=== PATIENT | female | born 2000 | race Caucasian/White ===

== ENCOUNTER 2022-06-22 19:37 | Emergency (ER) | payer MEDICAID ==
[~2022-06-22] VITALS: Ht 165.1 cm; Wt 122.5 kg
[2022-06-22 19:43] VITALS: BP 132/75
--- NOTE | 2022-06-22 19:47 | NUR ---
Patient waited in Lobby.
--- NOTE | 2022-06-22 20:07 | NUR ---
Patient returned back from X-ray via .
--- NOTE | 2022-06-22 21:12 | NUR ---
PER MD ORDER, A ORTHOPEDIC HARD BOTTOM SHOE WAS PLACED ON THE PTS RIGHT FOOT AND FASTENED SECURELY. +CMS BEFORE/AFTER. PT DID NOT COMPLAIN OF ANY PAIN OR DISCOMFORT. ERMD NOTIFIED.
--- NOTE | 2022-06-22 21:16 | NUR ---
Dr. Covington examining patient.
[2022-06-22] MEDS ORDERED: IBUP-2213 PO (21:25)
[2022-06-22 21:40] VITALS: BP 128/71
--- NOTE | 2022-06-22 21:40 | NUR ---
Patient discharged with v/s stable. Written and verbal after care instructions given and explained. Patient alert, oriented and verbalized understanding of instructions. Wheel Chair Assisted with to car. All questions addressed prior to discharge. ID band removed. Patient advised to follow up with PMD. Rx of Ibuprofen given. Patient educated on indication of medication including possible reaction and side effects. Opportunity to ask questions provided and answered.
== END 2022-06-22 21:40 | disposition home or self-care (01) ==
LOC: MED 19:37
DX: S92.901A Unspecified fracture of right foot, initial encounter for closed fracture (principal); X58.XXXA Exposure to other specified factors, initial encounter; Y93.89 Activity, other specified; Y92.89 Other specified places as the place of occurrence of the external cause; Y99.8 Other external cause status
CPT/HCPCS: 73610; 99283

== ENCOUNTER 2022-11-25 19:53 | Emergency (ER) | payer MEDICAID ==
[~2022-11-25] VITALS: Ht 165.1 cm; Wt 130.2 kg
[~2022-11-25 19:53] MED LIST: IBUP-2213 PO
[2022-11-25 20:11] VITALS: BP 137/94
--- NOTE | 2022-11-25 20:17 | NUR ---
To lobby following triage
[2022-11-25 20:38] LABS: BASOPHILS # (AUTO) 0.1 K/uL (0.00-0.22); BASOPHILS % (AUTO) 0.8 % (0.0-2.0); EOSINOPHILS # (AUTO) 0.1 K/uL (0-0.4); EOSINOPHILS % (AUTO) 1.8 % (0.0-4.0); HEMATOCRIT 35.2 % (36-48); HEMOGLOBIN 11.1 g/dL (12.0-16.0); LYMPHOCYTES # (AUTO) 1.9 K/uL (2.5-16.5); LYMPHOCYTES % (AUTO) 23.5 % (20.5-51.1); MEAN CORPUSCULAR HEMOGLOBIN 21 pg (27-31); MEAN CORPUSCULAR HGB CONC 32 g/dL (33-37); MEAN CORPUSCULAR VOLUME 66.8 fL (80-94); MONOCYTES # (AUTO) 0.5 K/uL (0.8-1.0); MONOCYTES % (AUTO) 6.6 % (1.7-9.3); NEUTROPHILS # (AUTO) 5.4 K/uL (1.8-7.7); NEUTROPHILS % (AUTO) 67.3 % (42.2-75.2); PLATELET COUNT (AUTO) 304 K/uL (140-450); RED BLOOD CELL COUNT(AUTO) 5.28 MIL/uL (4.20-5.40); RED CELL DISTRIBUTION WIDTH 17.5 % (11.6-13.7); WHITE BLOOD COUNT (AUTO) 8.1 K/uL (4.8-10.8)
--- NOTE | 2022-11-25 21:28 | NUR ---
PT AMBULATED TO BED #6
--- NOTE | 2022-11-25 21:38 | NUR ---
22 Y/O F PRESENTS WITH VAGINAL BLEEDING AND PAIN 7/10 FOR TWO WEEKS. PT STATED PERIOD HAS BEEN EXTREMLY HEAVY AND ABNORMAL, WITH PASSING OF 5 BLOOD CLOTS ABOUT 2 INCHES IN SIZE TODAY. PT STATES SHE FEELS LIGHTHEADED AND WEAK. PT STATED THIS IS HER FIRST PERIOD IN 5 MONTHS. PT DENIES ANY NV, BUT HAS DIARRHEA. PMH-PT DENIES NKA
[2022-11-25 21:53] LABS: APPEARANCE,URINE CLEAR (CLEAR); BILIRUBIN,URINE 1+ (NEGATIVE); BLOOD, URINE 3+ (NEGATIVE); COLOR,URINE YELLOW (YELLOW); LEUKOCYTE ESTERASE ,URINE NEGATIVE (NEGATIVE); NITRITE, URINE NEGATIVE (NEGATIVE); UGLUCOSE NEGATIVE (NEGATIVE)
--- NOTE | 2022-11-25 22:00 | NUR ---
Note adnis in EDM - 11/25/22 at 2208 by MARK Patient discharged with v/s stable. Written and verbal after care instructions given and explained. Patient verbalized understanding. Ambulatory with steady gait. All questions addressed prior to discharge. Advised to follow up with PMD.
--- NOTE | 2022-11-25 22:16 | NUR ---
DR. HENRY AT BEDSIDE
[2022-11-25] MEDS ORDERED: FERR325E14 PO (22:44)
[2022-11-25] MEDS ORDERED: MEDR10TA PO (22:44)
--- NOTE | 2022-11-25 22:48 | NUR ---
Patient discharged with v/s stable. Written and verbal after care instructions given and explained. Patient verbalized understanding. Ambulatory with steady gait. All questions addressed prior to discharge. Advised to follow up with PMD.
--- NOTE | 2022-11-25 22:52 | NUR ---
The patient's care was reviewed and supervised by Anjana Salcedo RN.
[2022-11-26 04:05] LABS: RBC,URINE TOO NUMEROUS TO COUN /HPF (0-5)
[2022-11-26 04:06] LABS: WBC,URINE 0 /HPF (0-5)
== END 2022-11-25 22:48 | disposition home or self-care (01) ==
LOC: MED 19:53
DX: N93.8 Other specified abnormal uterine and vaginal bleeding (principal)
CPT/HCPCS: 36415; 81001; 81025; 85025; 99283

== ENCOUNTER 2023-05-31 11:08 | Emergency (ER) | payer MEDICAID ==
[~2023-05-31] VITALS: Ht 165.1 cm; Wt 135.6 kg
[~2023-05-31 11:08] MED LIST changes: +FERR325E14 PO; +MEDR10TA PO
[2023-05-31 11:25] VITALS: BP 147/83; PULSE 88; RESP 20; TEMP 98; O2SAT 99
[2023-05-31] MEDS ORDERED: IBUPROFEN 400 MG TAB PO ONE (11:35)
--- NOTE | 2023-05-31 12:51 | NUR ---
PT'S LEFT FOOT 4TH AND 5TH TOES URIEL TAPED TOGETHER W/ GAUZE IN BETWEEN TOES. PT ALSO REFUSED ORTHO SHOE. STATED SHE ALREADY OWN ONE AT HOME THAT SHE CAN USE. +CMS
--- NOTE | 2023-05-31 13:05 | NUR ---
Patient discharged with v/s stable. Written and verbal after care instructions FOR TOE FRACTURE given and explained. Patient verbalized understanding. Ambulatory with steady gait. All questions addressed prior to discharge. Advised to follow up with PMD.
--- NOTE | 2023-05-31 13:18 | NUR ---
The patient's care was reviewed and supervised by [facility], RN.
== END 2023-05-31 13:18 | disposition home or self-care (01) ==
LOC: MED 11:08
DX: S92.522A Displaced fracture of middle phalanx of left lesser toe(s), initial encounter for closed fracture (principal); Z79.899 Other long term (current) drug therapy; W22.8XXA Striking against or struck by other objects, initial encounter; Y93.89 Activity, other specified; Y92.89 Other specified places as the place of occurrence of the external cause; Y99.8 Other external cause status
CPT/HCPCS: 73660; 99283

== ENCOUNTER 2023-09-15 09:35 | Emergency (ER) | payer MEDICAID, OTHER ==
[~2023-09-15] VITALS: Ht 165.1 cm; Wt 136.5 kg
[2023-09-15 09:36] VITALS: BP 122/92; PULSE 91; RESP 18; TEMP 98.8; O2SAT 95
[2023-09-15 10:34] LABS: FLU A ANTIGEN negative (NEGATIVE); FLU B ANTIGEN negative (NEGATIVE)
[2023-09-15] MEDS ORDERED: IBUP-2213 PO (10:42)
[2023-09-15] MEDS ORDERED: BENZ-300 PO (10:42)
[2023-09-15] MEDS ORDERED: PROM118S6 PO (10:42)
[2023-09-15 11:13] VITALS: BP 131/67; PULSE 74; RESP 17
[2023-09-17] MEDS ORDERED: PENI500T20 PO (12:32)
[2023-09-17 12:34] VITALS: O2SAT 95
== END 2023-09-15 11:14 | disposition home or self-care (01) ==
LOC: MED 09:35
DX: J02.8 Acute pharyngitis due to other specified organisms (principal); Z20.822 Contact with and (suspected) exposure to COVID-19; B97.89 Other viral agents as the cause of diseases classified elsewhere; Z79.899 Other long term (current) drug therapy
CPT/HCPCS: 87081; 99283

== ENCOUNTER 2023-10-05 15:04 | Emergency (ER) | payer OTHER ==
[~2023-10-05] VITALS: Ht 165.1 cm; Wt 136.5 kg
[~2023-10-05 15:04] MED LIST changes: +BENZ-300 PO; +PENI500T20 PO; +PROM118S6 PO
[2023-10-05 15:13] VITALS: BP 127/70; PULSE 78; RESP 17; TEMP 97.4; O2SAT 99
[2023-10-05] MEDS ORDERED: GUAI118L81 PO (16:18)
[2023-10-05] MEDS ORDERED: ACET-8211 PO (16:18)
[2023-10-05 17:09] VITALS: BP 127/70; PULSE 78; RESP 17; TEMP 97.4; O2SAT 99
[2023-10-05 17:24] LABS: FLU A ANTIGEN negative (NEGATIVE); FLU B ANTIGEN negative (NEGATIVE)
== END 2023-10-05 17:09 | disposition home or self-care (01) ==
LOC: MED 15:04
DX: J06.9 Acute upper respiratory infection, unspecified (principal); Z20.822 Contact with and (suspected) exposure to COVID-19; Z79.899 Other long term (current) drug therapy; Z79.2 Long term (current) use of antibiotics; Z79.1 Long term (current) use of non-steroidal anti-inflammatories (NSAID)
CPT/HCPCS: 99283

== ENCOUNTER 2024-02-27 15:32 | Emergency (ER) | payer OTHER ==
[~2024-02-27] VITALS: Ht 165.1 cm; Wt 139.3 kg
[~2024-02-27 15:32] MED LIST changes: +ACET-8211 PO; +GUAI118L81 PO
[2024-02-27 15:46] VITALS: BP 111/86; PULSE 79; RESP 18; TEMP 97.6; O2SAT 100
[2024-02-27] MEDS ORDERED: ONDANSETRON 4 MG/2 ML VIAL IVP ONE (16:30)
[2024-02-27] MEDS ORDERED: NACL 0.9% 1,000 ML IV SCH (16:30)
[2024-02-27] MEDS: KETOROLAC 30 MG/ML VIAL IVP ONE (16:52)
[2024-02-27] MEDS: ONDANSETRON 4 MG ODT PO ONE (16:58)
[2024-02-27 17:12] LABS: APPEARANCE,URINE CLEAR (CLEAR); BILIRUBIN,URINE NEGATIVE (NEGATIVE); BLOOD, URINE NEGATIVE (NEGATIVE); COLOR,URINE YELLOW (YELLOW); LEUKOCYTE ESTERASE ,URINE NEGATIVE (NEGATIVE); NITRITE, URINE NEGATIVE (NEGATIVE); PROTEIN,URINE NEGATIVE (NEGATIVE); UGLUCOSE NEGATIVE (NEGATIVE); UROBILINOGEN,URINE 0.2 EU/dL (0.2 - 1)
[2024-02-27] MEDS: KETOROLAC 60 MG/2 ML VIAL IM ONE (17:28)
[2024-02-27 17:56] LABS: BASOPHILS # (AUTO) 0.1 K/uL (0.00-0.22); BASOPHILS % (AUTO) 0.8 % (0.0-2.0); EOSINOPHILS # (AUTO) 0.1 K/uL (0-0.4); EOSINOPHILS % (AUTO) 1.5 % (0.0-4.0); HEMATOCRIT 35.1 % (36-48); HEMOGLOBIN 11.1 g/dL (12.0-16.0); LYMPHOCYTES # (AUTO) 2.3 K/uL (2.5-16.5); LYMPHOCYTES % (AUTO) 25.2 % (20.5-51.1); MEAN CORPUSCULAR HEMOGLOBIN 22 pg (27-31); MEAN CORPUSCULAR HGB CONC 32 g/dL (33-37); MEAN CORPUSCULAR VOLUME 69.4 fL (80-94); MONOCYTES # (AUTO) 0.7 K/uL (0.8-1.0); MONOCYTES % (AUTO) 7.9 % (1.7-9.3); NEUTROPHILS % (AUTO) 64.6 % (42.2-75.2); PLATELET COUNT (AUTO) 302 K/uL (140-450); RED BLOOD CELL COUNT(AUTO) 5.06 MIL/uL (4.20-5.40); RED CELL DISTRIBUTION WIDTH 15.5 % (11.6-13.7); WHITE BLOOD COUNT (AUTO) 9.3 K/uL (4.8-10.8)
[2024-02-27] MEDS ORDERED: ONDA8TAB87 PO (18:11)
[2024-02-27 18:17] LABS: ANION GAP 12.1 (8-16); CALCIUM 8.5 mg/dL (8.5-10.1); CARBON DIOXIDE 26.7 mmol/L (21-32); CREATININE 0.6 mg/dL (0.6-1.3); POTASSIUM 3.8 mmol/L (3.5-5.1)
[2024-02-27 18:21] LABS: ALBUMIN 3.3 g/dL (3.4-5.0); BILIRUBIN,DIRECT 0.1 mg/dL (0.0-0.3); TOTAL BILIRUBIN 0.2 mg/dL (0.0-1.0); TOTAL PROTEIN, SERUM 7.5 g/dL (6.4-8.2)
[2024-02-27 18:29] VITALS: BP 121/67; PULSE 72; RESP 18; TEMP 97.6; O2SAT 99
== END 2024-02-27 18:27 | disposition home or self-care (01) ==
LOC: MED 15:32
DX: R10.30 Lower abdominal pain, unspecified (principal); R10.2 Pelvic and perineal pain; Z79.899 Other long term (current) drug therapy
CPT/HCPCS: 36415; 74176; 80048; 80076; 81003; 81025; 83690; 85025; 99284; J1885; J2405; Q0162